=== PATIENT | female | born 1960 | race Caucasian/White ===

== ENCOUNTER 2017-11-28 07:00 | Emergency (ER) | payer BC ==
[~2017-11-28] VITALS: Ht 177.8 cm; Wt 86.0 kg
[~2017-11-28 07:00] MED LIST: ALBU18HF2 INH
[2017-11-28] MEDS ORDERED: albuterol 2.5 MG/3 ML nebule NEB ONE (07:15)
[2017-11-28 07:25] LABS: BASOPHILS # (AUTO) 0.1 X10'3 (0-0.2); BASOPHILS % (AUTO) 0.9 % (0-1); EOSINOPHILS # (AUTO) 0.4 X10'3 (0-0.9); EOSINOPHILS % (AUTO) 5.9 % (0-6); HEMATOCRIT 39.7 % (35.0-45.0); HEMOGLOBIN 14.1 g/dl (12.0-16.0); MEAN CORPUSCULAR HEMOGLOBIN 30.9 PG (27.0-31.0); MEAN CORPUSCULAR HGB CONC 35.4 % (33.0-36.5); MEAN CORPUSCULAR VOLUME 87.2 FL (78-98); MONOCYTES # (AUTO) 0.9 X10'3 (0-0.9); MONOCYTES % (AUTO) 13.1 % (2-12); NEUTROPHILS # (AUTO) 3.6 X10'3 (1.8-7.7); NEUTROPHILS % (AUTO) 51.1 % (42-75); PLATELET COUNT 319 X10'3 (140-440); RED BLOOD COUNT 4.55 X10'6 (4.20-5.60); RED CELL DISTRIBUTION WIDTH 12.3 % (11.5-14.5)
[2017-11-28 07:38] LABS: ALANINE AMINOTRANSFERASE 29 U/L (12-78); ALBUMIN 4.2 G/DL (3.4-5.0); ALBUMIN/GLOBULIN RATIO 1.3 (1.1-1.5); ALKALINE PHOSPHATASE 83 IU/L (46-116); ANION GAP 12 (8-16); ASPARTATE AMINO TRANSFERASE 24 U/L (10-37); BILIRUBIN,TOTAL 0.4 MG/DL (0.1-1.0); BLOOD UREA NITROGEN 18 MG/DL (7-18); BUN/CREATININE RATIO 16.2 (6.6-38.0); CALCIUM 9.5 MG/DL (8.5-10.1); CHLORIDE 102 MMOL/L (99-107); CREATININE 1.11 MG/DL (0.40-0.90); GLUCOSE 112 MG/DL (70-104); POTASSIUM 3.7 MMOL/L (3.5-5.1); SODIUM 139 MMOL/L (135-145); TOTAL CARBON DIOXIDE 24.8 MMOL/L (24-32); TOTAL PROTEIN 7.4 G/DL (6.4-8.2); eGFR 51 ML/MIN
[2017-11-28 07:44] LABS: D-DIMER 0.31 MG/L FEU (0-0.50); PARTIAL THROMBOPLASTIN TIME 25 SECONDS (22-32)
[2017-11-28 07:54] VITALS: BP 118/66
== END 2017-11-28 08:30 | disposition home or self-care (01) ==
LOC: ER 07:01
DX: R06.00 Dyspnea, unspecified (principal); Z88.5 Allergy status to narcotic agent
CPT/HCPCS: 36415; 71045; 80053; 83880; 84484; 85025; 85379; 85610; 85730; 93005; 94640; 94760; 99285

== ENCOUNTER 2020-10-22 20:38 | Emergency (ER) | payer BC ==
[~2020-10-22] VITALS: Ht 177.8 cm; Wt 86.0 kg
[2020-10-22] MEDS ORDERED: acetaminophen 325mg tablet PO STA (20:59)
[2020-10-22] MEDS ORDERED: ibuprofen tablet 400 MG TABLET PO ONE (21:00)
[2020-10-22] MEDS ORDERED: normal saline 1000ML IV soln IV ONE (21:00)
[2020-10-22 21:33] LABS: BASOPHILS % (AUTO) 0.4 % (0-1); EOSINOPHILS % (AUTO) 0.2 % (0-6); HEMATOCRIT 39.3 % (35.0-45.0); HEMOGLOBIN 13.2 g/dl (12.0-16.0); LYMPHOCYTES # (AUTO) 0.4 X10'3 (1.1-4.8); LYMPHOCYTES % (AUTO) 4.2 % (21-51); MEAN CORPUSCULAR HEMOGLOBIN 29.6 PG (27.0-31.0); MEAN CORPUSCULAR HGB CONC 33.5 g/dL (33.0-36.5); MEAN CORPUSCULAR VOLUME 88.3 FL (78-98); MONOCYTES # (AUTO) 0.6 X10'3 (0-0.9); MONOCYTES % (AUTO) 5.7 % (2-12); NEUTROPHILS # (AUTO) 8.9 X10'3 (1.8-7.7); NEUTROPHILS % (AUTO) 89.5 % (42-75); PLATELET COUNT 219 X10'3 (140-440); RED BLOOD COUNT 4.46 X10'6 (4.20-5.60); RED CELL DISTRIBUTION WIDTH 12.4 % (11.5-14.5)
[2020-10-22 21:48] LABS: ALANINE AMINOTRANSFERASE 252 U/L (12-78); ALBUMIN 3.4 G/DL (3.4-5.0); ALBUMIN/GLOBULIN RATIO 0.9 (1.1-1.5); ALKALINE PHOSPHATASE 194 IU/L (46-116); ANION GAP 11 (8-16); ASPARTATE AMINO TRANSFERASE 193 U/L (10-37); BILIRUBIN,TOTAL 0.7 MG/DL (0.1-1.0); BLOOD UREA NITROGEN 25 MG/DL (7-18); BUN/CREATININE RATIO 18.8 (6.6-38.0); CALCIUM 8.9 MG/DL (8.5-10.1); CHLORIDE 100 MMOL/L (99-107); CREATININE 1.33 MG/DL (0.40-0.90); GLUCOSE 174 MG/DL (70-104); MAGNESIUM 1.5 MG/DL (1.5-2.4); SODIUM 136 MMOL/L (135-145); TOTAL CARBON DIOXIDE 24.9 MMOL/L (24-32); TOTAL PROTEIN 7.2 G/DL (6.4-8.2); eGFR 41 ML/MIN
[2020-10-22] MEDS ORDERED: potassium Cl 20 mEq SR tablet PO STA (21:55)
[2020-10-22 22:23] LABS: CLARITY,URINE SLIGHTLY CLOUDY (Clear); COLOR,URINE YELLOW (Yellow); GLUCOSE, URINE NEGATIVE (Neg); KETONES,URINE NEGATIVE (Neg); LEUKOCYTE ESTERASE ,URINE SMALL (Neg); NITRITES, URINE POSITIVE (Neg); OCCULT BLOOD,URINE TRACE-INTACT (Neg); PROTEIN,URINE 30 mg/dl (Neg); UROBILINOGEN,URINE 0.2 E.U/dL (0.2-1.0)
[2020-10-22 22:31] LABS: UA COLLECTION TYPE STRAIGHT CATH
[2020-10-22 22:33] LABS: BACTERIA,URINE 3+ /HPF (Neg); WBC CLUMPS,URINE MANY /HPF (NEGATIVE)
[2020-10-22 22:34] LABS: SQUAMOUS EPITHELIAL CELL,UR FEW /LPF (FEW)
[2020-10-22 22:35] LABS: WBC,URINE 50-100 /HPF (0-4)
[2020-10-22] MEDS ORDERED: CefTRIAXone/D5W-Rocephin 1gm 50 ML IV ONE (22:40)
[2020-10-22] MEDS ORDERED: CEPH-585 PO (23:18)
[2020-10-22 23:26] LABS: C-REACTIVE PROTEIN 14.05 MG/DL (0.0-0.5); FERRITIN 470 NG/ML (8-252); LACTATE DEHYDROGENASE 304 U/L (81-234)
[2020-10-23 00:05] VITALS: BP 105/54
== END 2020-10-23 00:08 | disposition home or self-care (01) ==
LOC: ER 20:39
DX: U07.1 COVID-19 (principal); N39.0 Urinary tract infection, site not specified; Z88.5 Allergy status to narcotic agent; Z79.899 Other long term (current) drug therapy
CPT/HCPCS: 36415; 71045; 80053; 81001; 82728; 83605; 83615; 83735; 84145; 85025; 85384; 86140; 87040; 87077; 87088; 87186; 87635; 96361; 96365; 99284; C9803; J0696; J7030